=== PATIENT | male | born 1970 | race Caucasian/White ===

== ENCOUNTER 2021-11-22 07:59 | Emergency (ER) | payer OTHER ==
[~2021-11-22] VITALS: Ht 180.3 cm; Wt 114.8 kg
[2021-11-22] MEDS ORDERED: XARELTO1 EAC1 PO (09:14)
== END 2021-11-22 09:26 | disposition home or self-care (01) ==
LOC: ER 07:59
DX: I82.411 Acute embolism and thrombosis of right femoral vein (principal); I82.431 Acute embolism and thrombosis of right popliteal vein; I82.441 Acute embolism and thrombosis of right tibial vein; I82.451 Acute embolism and thrombosis of right peroneal vein; F17.200 Nicotine dependence, unspecified, uncomplicated
CPT/HCPCS: 93971; 99283-25

== ENCOUNTER 2025-02-07 07:32 | Day surgery (SDC) | payer OTHER ==
[~2025-02-07] VITALS: Ht 180.3 cm; Wt 117.7 kg
[~2025-02-07 07:32] MED LIST: XARELTO1 EAC1 PO; XARELTO20 MG PO
[2025-02-07] MEDS ORDERED: AMLO10 (07:49)
[2025-02-07] MEDS ORDERED: ATOR40TA (07:49)
[2025-02-07] MEDS ORDERED: LISI20 (07:50)
[2025-02-07] MEDS ORDERED: Midazolam HCL 1 MG/ML 5MLVIAL ONE (08:40)
[2025-02-07 10:03] VITALS: BP 106/72
--- NOTE | 2025-02-07 10:05 | NUR ---
02/07/[address] INFORMED PATIENT THAT BECAUSE SOME POLYPS WERE LOWER IN THE COLON (RECTAL AREA) HE MAY HAVE SOME "SLIGHT BLEEDING THE NEXT FEW DAYS THAT SHOULD TAPER OFF". RN EXPLAINED TO PATIENT THAT HE SHOULD CALL THE OFFICE IF THE BLEEDING IS MORE THAN JUST A BIT ON THE TOILET PAPER, IF IT IS DRIPPING INTO THE TOILET OR IF IT DOES NOT TAPER OFF.
== END 2025-02-07 09:58 | disposition home or self-care (01) ==
LOC: ORSCSDS 07:32
PROVIDERS: Surgery
PROC: 0DBL8ZX Excision of Transverse Colon, Via Natural or Artificial Opening Endoscopic, Diagnostic (ICD-10-PCS; principal; 2025-02-07 09:00)
PROC: 0DBH8ZX Excision of Cecum, Via Natural or Artificial Opening Endoscopic, Diagnostic (ICD-10-PCS; principal; 2025-02-07 09:00)
PROC: 0DBP8ZX Excision of Rectum, Via Natural or Artificial Opening Endoscopic, Diagnostic (ICD-10-PCS; principal; 2025-02-07 09:00)
PROC: 0DBN8ZX Excision of Sigmoid Colon, Via Natural or Artificial Opening Endoscopic, Diagnostic (ICD-10-PCS; principal; 2025-02-07 09:00)
PROC: 0DBM8ZX Excision of Descending Colon, Via Natural or Artificial Opening Endoscopic, Diagnostic (ICD-10-PCS; principal; 2025-02-07 09:00)
DX: Z12.11 Encounter for screening for malignant neoplasm of colon (principal); D12.1 Benign neoplasm of appendix; D12.3 Benign neoplasm of transverse colon; D12.4 Benign neoplasm of descending colon; K63.5 Polyp of colon; K64.0 First degree hemorrhoids; E78.5 Hyperlipidemia, unspecified; G47.33 Obstructive sleep apnea (adult) (pediatric); K21.9 Gastro-esophageal reflux disease without esophagitis; I10 Essential (primary) hypertension; Z86.718 Personal history of other venous thrombosis and embolism; K57.30 Diverticulosis of large intestine without perforation or abscess without bleeding; F10.10 Alcohol abuse, uncomplicated; E66.01 Morbid (severe) obesity due to excess calories; Z68.36 Body mass index [BMI] 36.0-36.9, adult; F17.210 Nicotine dependence, cigarettes, uncomplicated; Z79.01 Long term (current) use of anticoagulants; Z79.899 Other long term (current) drug therapy
CPT/HCPCS: 88305; J2250; J2704; J7120

== ENCOUNTER → 2025-05-15 | Outpatient (CLI) | payer OTHER ==
[~2025-05-15] MED LIST changes: +AMLO10; +ATOR40TA; +LISI20
== END ==
LOC: LAB SHORT 12:07 → LAB 12:07
DX: L30.8 Other specified dermatitis (principal); D48.5 Neoplasm of uncertain behavior of skin
CPT/HCPCS: 88305; 88312; 88313